=== PATIENT | female | born 1990 | race Caucasian/White ===

== ENCOUNTER 2025-07-23 10:09 | Outpatient (AMB) | payer OTHER, SELFPAY ==
--- NOTE | 2025-07-23 10:20 | A.OFFPC_ITS ---
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 Allergies hydrocodone Allergy (Verified 07/23/25 10:23) Vomiting Tobacco use date assessed: 07/23/25 Dental Screening Dental Screen Date: 07/23/25 Did you have a dental visit in the last 12 months?: Yes Did you have a dental problem in the last 6 months where you did not have access to dental care?: No Was dental information given to patient?: Patient has dentist HPI HPI Comments History of Present Illness Details This is a 35-year-old female with a past medical history of mild intermittent asthma and migraines presenting for an appointment to establish care. She requests a physical exam. She transferred from [facility], we have not received the records. She will sign a release form today. She gets a couple of migraines per week and treats with Excedrin migraine as needed. She has taken other oral medications for prophylaxis and to abort headaches which were ineffective. She was previously seen at the [facility], and she was going to start a monthly prophylactic injections, but then she became with her 1st child and could not start medicine after that because she was . She is still currently her 2nd child, but after she is done she would like to pursue this again. She will notify the office when she wants the referral. She has a 6-year-old son and 2-year-old daughter. Asthma is treated with albuterol as needed. She only requires this during illness and when she is doing vigorous sulcal activity. She has never been hospitalized for asthma. She is a nonsmoker. Patient reports Tdap was administered in January 2023 during her last . Flu vaccine administered today. ROS: Constitutional: No unexplained weight loss, fever, chills or night sweats. 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 Her daughter does not always sleep through the night. Eyes: No vision changes, blurry vision, double vision, eye pain, eye redness, eye discharge. ENT: No hearing loss, sneezing, congestion, runny nose or sore throat. Respiratory: No shortness of breath, cough or sputum production. Cardiovascular: No chest pain, chest pressure or chest discomfort. No palpitations or pedal edema. Gastrointestinal: No anorexia, nausea, vomiting or diarrhea. No abdominal pain or blood in stool. Genitourinary: No dysuria, hematuria, urinary frequency. Neurologic: No headache, dizziness, syncope, unilateral weakness, ataxia, numbness or tingling in the extremities. Musculoskeletal: No muscle pain, back pain, joint pain or swelling. Hematologic/Lymphatics: No bleeding or bruising. No painful lymph nodes. Skin: No rash or itching. Endocrine: No cold or heat intolerance. No polyuria or polydipsia. Psychiatric: No depression or anxiety. No SI/HI. Physical exam: Constitutional: Alert, in no distress. Head: Normocephalic. Eyes: Pupils are equal, round and reactive to light. Extraocular muscles intact. Ear, Nose and Throat: Canals clear. TMs salazar and pearly. There is a small scar on the left tympanic membrane which patient reports is from a perforation from a bug bite when she was a child. Normal nasal mucosa. No nasal discharge. No oral lesions. Neck: Supple, Full range of motion. No lymphadenopathy. No palpable thyroid masses. Respiratory: Clear to auscultation. Cardiovascular: S1 S2 regular. No murmurs. Gastrointestinal: Abdomen soft, non-tender, non-distended. Normal bowel sounds. No palpable masses. Neurologic: No focal neurological deficits. Symmetric patellar reflexes. Moves all extremities spontaneously. Sensation intact bilaterally. Skin: No rashes Musculoskeletal: No gross deformities. Normal range of motion. Extremities: Warm and well perfused. No clubbing, cyanosis or edema. Intact peripheral pulses. Psychiatric: Normal mood and affect [facility] Medical History (Updated 07/23/25 @ 11:06 by MARYJO Evans) Fatigue Routine physical examination Ganglion cyst Migraines Asthma Family History (Updated 07/23/25 @ 10:[address] CMA) Mother Asthma Hypertension Sister Asthma Paternal Grandmother Thyroid disorder Pancreatic cancer Maternal Grandmother Stroke Dementia Maternal Grandfather Lung cancer Social History (Updated 07/23/25 @ 10:[address] CMA) Housing: House Alcohol intake: current Patient Tobacco Use Status: Never used Tobacco e-Cigarette/Vaping Use: Never Used Second Hand Smoke Exposure: No service: No Current occupational status: employed Current occupation: [employer] Current occupational exposures/hazards: No Cognitive needs: No Hearing needs: No Vision needs: No Questionnaire PHQ-9 Over the last 2 weeks, how often have you been bothered by any of the following problems? 1. Little interest or pleasure in doing things: not at all 2. Feeling down, depressed, or hopeless: not at all 3. Trouble falling or staying asleep, or sleeping too much: several days 4. Feeling tired or having little energy: several days 5. Poor appetite or overeating: not at all 6. Feeling bad about yourself - or that you are a failure or have let yourself or your family down: not at all 7. Trouble concentrating on things, such as reading the newspaper or watching television: not at all 8. Moving or speaking so slowly that other people could have noticed. Or the opposite - being so fidgety or restless that you have been moving around a lot more than usual: not at all 9. Thoughts that you would be better off or of hurting yourself in some way: not at all Total score: 2 Depression Screening Interpretation: Negative Depression Screening Done: Yes 87752 - PHQ-9 Billing: Yes Source: Developed by Drs. Warren Cervantes, Miesha Dailey, Philippe Tirado and colleagues, with an educational phu from [employer]. Thrive Questionnaire Date Thrive assessed: 07/23/25 I am a: Patient What is your living situation today?: I have a steady place to live Within the past 12 months, did the food you bought not last and you didn't have the money to get more?: Never true Within the past 12 months, did you worry whether your food would run out before you got money to buy more?: Never true Do you have trouble paying for medicines?: No Do you have trouble getting transportation to medical appointments?: No Do you have trouble paying your heating and electricity bill?: No Do you have trouble taking care of your child, family member or friend?: No Do you have trouble with day-to-day activities such as bathing, preparing meals, shopping, managing finances, etc.?: No Are you currently unemployed and looking for a job?: No Are you interested in more education?: No Please select the resources that you would like help with: None Currently or been in a relationship where the following occur: No concerns reported THRIVE Score: 0 AUDIT C Alcohol Use Questionnaire (AUDIT-C) 1. How often do you have a drink containing alcohol?: 2-4 times a month 2. How many drinks containing alcohol do you have on a typical day when you are drinking?: 1 or 2 3. How often do you have six or more drinks on one occasion?: Never Total Score: 2 ISI-7 AMB Questionnaire ISI-7 Date ISI - 7 assessed: 07/23/25 Feeling nervous, anxious, or on edge: 1 = Several days Not being able to stop or control worryin = Not at all Worrying too much about different things: 0 = Not at all Trouble relaxin = Several days Being so restless that it is hard to sit still: 0 = Not at all Becoming easily annoyed or irritable: 1 = Several days Feeling afraid as if something awful might happen: 0 = Not at all Total ISI-7 score (0-4 normal; 5-9 mild; 10-14 moderate; 15-21 severe): 3 Source: Developed by Drs. Warren Cervantes, Miesha Dailey, Philippe Tirado and colleagues, with an educational phu from [employer]. ISI-7 Assessment Billing ISI-7 Assessment Tool: ISI-7 Assessment 83854 Physical exam (Primary Care) Vital Signs: Last Vital Signs Temp 98.2 F 07/23/25 10:28 Pulse 83 07/23/25 10:28 Resp 15 07/23/25 10:28 BP 100/70 07/23/25 10:28 Pulse Ox 99 07/23/25 10:28 Oxygen Delivery Method Room Air 07/23/25 10:28 BMI result Body Mass Index 31.9 Tobacco/Smoking Status: Tobacco use Status Tobacco use date assessed 07/23/25 07/23/25 10:34 Patient Tobacco Use Status Never used Tobacco 07/23/25 10:34 e-Cigarette/Vaping Use Never Used 07/23/25 10:34 PHQ-9: PHQ-9 Score PHQ-9: Total score 2 07/23/25 10:22 Depression Screening Interpretation: Negative Thrive Assessment: Date of Thrive Assessment Date Thrive assessed 07/23/25 07/23/25 10:22 Currently or been in a relationship where the following occur: No concerns reported Office Procedures Flu Questionnaire Does the patient have a severe egg allergy?: No Does the patient have severe life threatening allergies?: No Does the patient have a fever or illness today?: No Has the patient ever had Guillain-Hines Syndrome?: No Has the patient ever had any past reaction to a flu shot?: No Immunizations Fluarix [id number] (PF) 45 mcg (15 mcg x 3)/0.5 mL IM syringe Performing Provider: MARYJO Evans Performing Location: [facility] [place] [facility] Administered by: Prisca Way CMA on 07/23/25 11:13 Dose Route Admin Location Dispensed Lot Number Expiration Date NDC Grain Manager 0.5 mL IM Left Deltoid 0.5 mL [id number] 04/27/26 08101-743-66 [employer] VIS Given Date VIS Provided VIS Publication Date 07/23/25 Single Vaccine 24 Eligibility Eligibility Date Funding Source Not [facility] Eligible 07/23/25 Private Coding Level of Care Code New Pt Prev Care 18-39yr(29004 Diagnoses Routine physical examination Z00.00 Chronic fatigue R53.82 Fatigue type: chronic, unspecified Additional Codes ISI-7 Assessment Billing - ISI-7 Assessment Tool: ISI-7 Assessment 64484 ([id number]) PHQ-9 - 72010 - PHQ-9 Billing: Yes ([id number]) Assessment & Plan Assessment & Plan (1) Routine physical examination: Code(s): Z00.00 - Encounter for general adult medical examination without abnormal findings Category: Medical Plan: Patient is seen today for a routine physical. As part of this visit we reviewed the following issues, which are considered and essential part of preventative health in this age group: - Breast Cancer screening - Annual [employer]2E[employer] Developer exam - BOGG. Patient overdue and will call to schedule. - Blood pressure screening - Cholesterol screening - Osteoporosis prevention including calcium/vitamin D intake, weight bearing exercise & smoking cessation - Nutritional and exercise counseling - Counseling of injury prevention including fire prevention, smoke alarms and seat belt usage - Screening for depression - Education about skin cancer - Recommendations about immunizations - Recommendation of an eye exam - Screening for substance abuse (2) Fatigue: Code(s): R53.83 - Other fatigue Category: Medical Qualifiers: Fatigue type: chronic, unspecified Qualified Code(s): R53.82 - Chronic fatigue, unspecified Plan: No depression or anxiety. No red flags provided in the history or on physical exam. This may be due to her busy schedule and inadequate sleep, but we will proceed with a lab evaluation with CMP, CBC, TSH and vitamin-D level. Plan Schedule physical in 1 year. Orders: Orders Vitamin D 25-OH (D2 and D3) Today R53.83 - Other fatigue, Z00.00 - Encounter for general adult medical examination without abnormal findings, Z13.6 - Encounter for screening for cardiovascular disorders Comprehensive Met. Panel Today R53.83 - Other fatigue, Z00.00 - Encounter for general adult medical examination without abnormal findings, Z13.6 - Encounter for screening for cardiovascular disorders TSH reflex Free T4 Today R53.83 - Other fatigue, Z00.00 - Encounter for general adult medical examination without abnormal findings, Z13.6 - Encounter for screening for cardiovascular disorders Lipid Panel Today E78.5 - Hyperlipidemia, unspecified, R53.83 - Other fatigue, Z00.00 - Encounter for general adult medical examination without abnormal findings, Z13.6 - Encounter for screening for cardiovascular disorders Influenza [id number] Immunization Today Z23 - Encounter for immunization Complete Blood Count no Diff Today R53.83 - Other fatigue, Z00.00 - Encounter for general adult medical examination without abnormal findings, Z13.6 - Encounter for screening for cardiovascular disorders
[2025-07-23 10:28] VITALS: BP 100/70; PULSE 83; RESP 15; TEMP 36.8; O2SAT 99; BMI 31.9
== END 2025-07-23 11:13 | disposition home or self-care (01) ==
LOC: HO.HMCFM 10:10
PROVIDERS: PCP Physician Assistant Medical; Visit Provider Physician Assistant Medical
DX: Z00.00 Encounter for general adult medical examination without abnormal findings (principal); R53.82 Chronic fatigue, unspecified; Z23 Encounter for immunization

== ENCOUNTER → 2025-07-23 10:09 | Outpatient (BNVA) | payer OTHER, SELFPAY | PROVIDERS: PCP Physician Assistant Medical; Visit Provider Physician Assistant Medical | DX: Z00.00 Encounter for general adult medical examination without abnormal findings (principal); Z23 Encounter for immunization; R53.82 Chronic fatigue, unspecified; J45.20 Mild intermittent asthma, uncomplicated; G43.909 Migraine, unspecified, not intractable, without status migrainosus; Z13.31 Encounter for screening for depression; Z13.39 Encounter for screening examination for other mental health and behavioral disorders | CPT/HCPCS: 90471; 90656; 96127 ==